=== PATIENT | male | born 1990 | race Caucasian/White ===

== ENCOUNTER → 2016-08-18 | Outpatient (CLI) | payer SELFPAY ==
[~2016-08-18] VITALS: Ht 170.2 cm; Wt 129.0 kg
[~2016-08-18] MED LIST: TYLENOL 8 HR PO
[2016-08-18 07:00] VITALS: BP 135/93; PULSE 90
[2016-08-18 07:27] LABS: PROTHROMBIN TIME 11.4 SECONDS (9.7-12.8)
== END ==
LOC: COL.RAD 06:22
PROVIDERS: Internal Medicine Medical Oncology
DX: C90.00 Multiple myeloma not having achieved remission (principal); Z53.09 Procedure and treatment not carried out because of other contraindication